=== PATIENT | female | born 2000 | race Caucasian/White ===

== ENCOUNTER 2024-11-30 16:07 | Outpatient (CLI) | payer BC, SELFPAY ==
--- OUTSIDE RECORDS SUMMARY | 2024-10-09 11:40 | XMS_ITS | Encounter Summary ---
Author Organization [place] [address] Care Team Providers Care Textile Dyer Name Role Phone Siri Valle ADMINISTRATIVE PROFESSIONAL Primary Care Provider [phone] Reason for Visit * Reason Comments Routine Visit Encounter Details Date Type Department Care Team (Late st Contact Info) Description 10/09/2024 11:40 AM EDT ROUTINE FOLLOW UP OB VISIT SEP Women's [facility] NPTF[facility] [address] [place] [address] Yelena Nielson DO [address] [place] [address] Encounter for supervision of other normal in second trimester (Primary Dx) Social History Tobacco Use Types Packs/Day Years Used Date Smoking Tobacco: Never Smokeless Tobacco: Never Tobacco Cessation:Counseling Given: Not Answered Alcohol Use Standard Drinks/Week Comments Not Currently 0 (1 standard drink = 0.6 oz pur e alcohol) occ Sexually Active Control Partners Comments Yes Male None Estimated Date of Delivery Comme nts Yes 01/28/2025 Based on last me nstrual period of 04/23/2024 Sex and Gender Information Value Date Recorded Sex Assigned at Not on file Legal Sex Female 11:02 AM EDT Gender Identity Not on file Sexual Orientation Not on file documented as of this encounter Last Filed Vital Signs Vital Sign Reading Time Taken Comments Blood Pressure 122/68 10/09/2024 11:36 AM EDT Pulse - - Temperature - - Respiratory Rate - - Oxygen Saturation - - Inhaled Oxygen Concentration - - Weight 89.4 kg (197 lb) 10/09/2024 11:36 AM EDT Height - - Body Mass Index 33.81 09/11/2024 3:29 PM EDT documented in this encounter Progress Notes * Liz Shaw RMA - 10/09/2024 11:40 AM EDT 24w1d Results for orders placed or performed in visit on 10/09/24 SEP URINALYSIS POC Result Value Ref Range UA Color POC Yellow Color UA Appear POC Clear Clear UA Gluc POC Negative Negative mg/dL UA Bili POC Negative Negative UA Ketones POC Negative Negative mg/dL UA SG POC 1.020 1.001 - 1.035 no units UA Blood POC Negative Negative UA pH POC 7.5 5.0 - 8.0 pH UA Protein POC Negative Negative mg/dL UA Urobilinogen POC 0.2 0.2, 1.0 UA Nitrite POC Negative Negative UA Leuk Est POC Negative Negative Vitals: 10/09/24 1136 BP: 122/68 BP Location: Right arm Patient Position: Sitting Weight: 197 lb (89.4 kg) * Yelena Nielson DO - 10/09/2024 11:40 AM EDT 24 y.o. at 24w1d presents for return OB visit. History of Present Illness The patient is a 24-year-old female who presents for a return OB visit. No unusual c/o BP: 122/68 Weight: 197 lb (89.4 kg) Albumin: Negative Glucose: Negative Heart Rate: + Movement: Present Diagnoses and all orders for this visit: Encounter for supervision of other normal in second trimester Overview: EDC by LMP PNL wnl Genetics low risk Anatomy nl GCT ordered Tdap Consent GBS Orders: - CBC; Future - SYPHILIS SCREEN WITH REFLEX RPR QUANT; Future - PREG GLUCOSE SCREEN; Future - SEP URINALYSIS POC Return in about 4 weeks (around 11/06/2024). Assessment & Plan 1. Routine obstetric follow-up - Anticipate more pronounced movements starting at 28 weeks, with the anterior placenta potentially affecting perception of these movements. Follow-up Follow up in 4 weeks. The provider educated the patient (or legal labor relations representative) on the use of the ambient listening artificial intelligence tool, [employer] Copilot. They were informed that this AI tool processes the conversation to generate a clinical note with the expected benefit of improved accuracy while achieving an improved encounter experience for the patient and provider.?The provider explained that the medical information captured by the AI tool including, but not limited to, diagnoses and treatment plan would be protected in accordance with applicable privacy laws and that all diagnoses and treatment decisions would be made by the provider. The provider explained that the note generated will be reviewed bythe provider for accuracy to minimize potential errors.? The patient was given an opportunity to ask questions and opt out of proceeding with the use of the AI tool. After being informed of such information, the patient (or legal labor relations representative), and each individual in attendance with the patient, verbally consented to the use of the AI tool. documented in this encounter Plan of Treatment Upcoming Encounters Date Type Department Care Team (Late st Contact Info) Description 12/03/2024 3:10 PM EDT ROUTINE FOLLOW UP OB VISIT [facility] [address] [place] [phone] Sandy Morejon MD [address] [place] [address] 12/17/2024 4:40 PM EDT ROUTINE FOLLOW UP OB VISIT [facility] [address] [phone] Laila Holcomb MD [address] [place] [address] 12/31/2024 3:40 PM EDT ROUTINE FOLLOW UP OB VISIT [facility] [address] [place] [phone] Sabine Garzon DO [address] [place] [id number] 01/07/2025 4:40 PM EDT ROUTINE FOLLOW UP OB VISIT [facility] [address] [phone] Laila Holcomb MD [address] [place] [id number] 01/14/2025 4:40 PM EDT ROUTINE FOLLOW UP OB VISIT [address] [address] Yelena Nielson, DO [address] [place] [id number] 01/21/2025 4:10 PM EDT ROUTINE FOLLOW UP OB VISIT [address] [phone] Scar Turner, DO [address] [place], [place] [id number] 01/28/2025 3:00 PM EDT Clinical Support [address] [address] 01/28/2025 4:20 PM EDT ROUTINE FOLLOW UP OB VISIT [address] [phone] Sandy Morejon MD [address] [place], [place] [id number] documented as of this encounter Procedures Procedure Name Priority Date/Time Associated Diagnosis Comments SEP URINALYSIS POC Routine 10/09/2024 11 :35 AM EDT Encounter for supervision of other normal in second trimester documented in this encounter Results * PREG GLUCOSE SCREEN (10/18/2024 10:47 AM EDT) Preg Screen 121 <130 mg/dL 10/18/2024 1:06 PM EDT [facility] [employer] Blood VENOUS BLOOD / Unknown Venipuncture / Unknown 10/18/2024 10:47 AM EDT 10/18/2024 10:47 AM EDT Narrative [facility] - 10/18/2024 1:06 PM EDT Choice of screening threshold may vary from 130 mg/dL to 140 mg/dL. ACOG recommends 3 Hr diagnostic oral glucose tolerance test following positive screen. Yelena Nielson CHEMISTRY ORDERABL ES Final Result Performing Organization Address [facility] Co de Phone Number [facility] , [place] [address] * SYPHILIS SCREEN WITH REFLEX RPR QUANT (10/18/2024 10:47 AM EDT) Pathologist [facility] Trep Ab Index 0.02 <=0.99 Index Value 10/18/2024 1:06 PM EDT [facility] Comment: < 1.00 - Non-Reactive >=1.00 - Reactive NOTE: All reactive results will be reflexed to Quantitative Non-Treponemal(RPR)test. Blood VENOUS BLOOD / Unknown Venipuncture / Unknown 10/18/2024 10:47 AM EDT 10/18/2024 10:47 AM EDT Yelena Nielson DO CHEMISTRY ORDERABL ES Final Result Performing Organization Address [facility] Co de Phone Number [address] , [place] [address] * (ABNORMAL) CBC (10/18/2024 10:47 AM EDT) WBC 11.1(H) 3.7 - 10.3 x10(3)/mcL 10/18/2024 11:43 AM EDT [facility] [facility] RBC 3.82(L) 3.90 - 5.20 x10(6)/mcL 10/18/2024 11:43 AM EDT [facility] Hgb 11.4 11.2 - 15.7 g/dL 10/18/2024 11:43 AM EDT [facility] Hct 34.7 34.0 - 45.0 % 10/18/2024 11:43 AM EDT [facility] MCV 90.8 80.0 - 100.0 fL 10/18/2024 11:43 AM EDT [facility] MCH 29.8 26.0 - 34.0 pg 10/18/2024 11:43 AM EDT [facility] MCHC 32.9 30.7 - 35.5 g/dL 10/18/2024 11:43 AM EDT [facility] RDW 13.2 <=14.9 % 10/18/2024 11:43 AM EDT [facility] Platelet 259 155 - 369 x10(3)/mcL 10/18/2024 11:43 AM EDT [facility] MPV 12.3 8.8 - 12.5 fL 10/18/2024 11:43 AM EDT [facility] Blood VENOUS BLOOD / Unknown Venipuncture / Unknown 10/18/2024 10:47 AM EDT 10/18/2024 10:47 AM EDT us Yelena Nielson DO HEMATOLOGY ORDERAB LES Final Result [facility] [address] [facility] , [place] [address] * [facility] URINALYSIS POC (10/09/2024 11:35 AM EDT) UA Color POC Yellow Color 10/09/2024 11:37 AM EDT [facility] UA Appear POC Clear Clear 10/09/2024 11:37 AM EDT [facility] UA Gluc POC Negative Negative mg/dL 10/09/2024 11:37 AM EDT [facility] UA Bili POC Negative Negative 10/09/2024 11:37 AM EDT [facility] UA Ketones POC Negative Negative mg/dL 10/09/2024 11:37 AM EDT [facility] UA SG POC 1.020 1.001 - 1.035 no units 10/09/2024 11:37 AM EDT [facility] UA Blood POC Negative Negative 10/09/2024 11:37 AM EDT [facility] UA pH POC 7.5 5.0 - 8.0 pH 10/09/2024 11:37 AM EDT [facility] UA Protein POC Negative Negative mg/dL 10/09/2024 11:37 AM EDT [facility] UA Urobilinogen POC 0.2 0.2, 1.0 10/09/2024 11:37 AM EDT [facility] UA Nitrite POC Negative Negative 10/09/2024 11:37 AM EDT [facility] UA Leuk Est POC Negative Negative 11:37 AM EDT [facility] Urine STRUCTURE OF URINARY TRACT PROPER / Unknown 10/09/2024 11:35 AM EDT 10/09/2024 11:37 AM EDT us Yelena Nielson DO POINT OF CARE TEST ORDERABLES Final Result [facility] [address] [place] [address] documented in this encounter Visit Diagnoses Diagnosis Encounter for supervision of other normal in second trimester- Primary documented in this encounter Care Teams Textile Dyer Relationship Specialty Start Date End Date Siri Valle NP [address] [place] [address] PCP - General Nurse Practitioner-Family 11/10/22 documented as of this encounter
--- OUTSIDE RECORDS SUMMARY | 2024-10-18 09:40 | XMS_ITS | Encounter Summary ---
Author Organization [place] [address] Care Team Providers Care Account Clerk Name Role Phone Siri Valle BOARD LINER OPERATOR Primary Care Provider [phone] Encounter Details Date Type Department Care Team (Latest Contact Info) Description 10/18/2024 9:40 AM EDT - 10/18/2024 11:59 PM EDT Hospital Encounter [facility] [place] [facility] Encounter for supervision of other normal in second trimester Discharge Disposition: Home or Self Care Social History Tobacco Use Types Packs/Day Years Used Date Smoking Tobacco: Never Smokeless Tobacco: Never Alcohol Use Standard Drinks/Week Comments Not Currently [...] on file documented as of this encounter Medications at Time of Discharge Azelaic Acid 15 % Top GelIndications:Ac ne vulgaris Apply a thin layer topically to the face BID. 50 g 1 05/24/2024 Doxylamine Succinate (UNISOM, DOXYLAMINE,) 25 mg Oral TabletIndications :nausea gravidarum Take 25 mg by mouth daily. Indications: nausea and vomiting of ketoconazole (NIZORAL) 2 % Top ShampooIndication s:Seborrheic dermatitis Apply topically to scalp, lather, and leave on for 5 minutes, then rinse. Use three times weekly for flares. 120 mL 2 05/24/2024 metFORMIN (GLUCOPHAGE XR) 500 mg Oral ER 24 hr tabletIndications :Encounter for supervision of other normal in first trimester,PCOS (polycystic ovarian syndrome) Take 1 Tablet by mouth 2 times daily. 180 Tablet 07/06/2024 vit no.124/iron/folic ( VITAMIN ORAL) Take 1 Tablet by mouth daily. documented as of this encounter Discharge Disposition Disposition Code Departure Means Destination Home or Self Care documented in this encounter Plan of Treatment Upcoming Encounters Date Type Department Care Team (Late st Contact Info) Description 12/03/2024 3:10 PM EDT ROUTINE FOLLOW UP OB VISIT [facility] [address] [phone] Sandy Morejon MD [address] [place] [address] 12/17/2024 4:40 PM EDT ROUTINE FOLLOW UP OB VISIT [address] [phone] Laila Holcomb MD [address] [place] [address] 12/31/2024 3:40 PM EDT ROUTINE FOLLOW UP OB VISIT [address] [phone] Sabine Garzon DO [address] [place] [address] 01/07/2025 4:40 PM EDT ROUTINE FOLLOW UP OB VISIT [address] [phone] Laila Holcomb MD [address] [place] [address] 01/14/2025 4:40 PM EDT ROUTINE FOLLOW UP OB VISIT [address] [phone] Yelena Nielson, DO [address] [place] [id number] 01/21/2025 4:10 PM EDT ROUTINE FOLLOW UP OB VISIT [address] [phone] Scar Turner, DO [address] [place] [id number] 01/28/2025 3:00 PM EDT Clinical Support [address] [address] 01/28/2025 4:20 PM EDT ROUTINE FOLLOW UP OB VISIT [address] [phone] Sandy Morejon MD [address] [place] [id number] documented as of this encounter Procedures Procedure Name Priority Date/Time Associated Diagnosis Comments SYPHILIS SCREEN WITH REFLEX RPR QUANT Routine 10/18/2024 10:47 AM EDT Encounter for supervision of other normal in second trimester PREG GLUCOSE SCREEN Routine 10/18/2024 1 0:47 AM EDT Encounter for supervision of other normal in second trimester CBC Routine 10/18/2024 10:47 AM EDT Encounter for supervision of other normal in second trimester documented in this encounter Results * PREG GLUCOSE SCREEN (10/18/2024 10:47 AM EDT) Preg Screen 121 <130 mg/dL 10/18/2024 1:06 PM EDT [employer] Blood VENOUS BLOOD / Unknown Venipuncture / Unknown 10/18/2024 10:47 AM EDT 10/18/2024 10:47 AM EDT Narrative [facility] - 10/18/2024 1:06 PM EDT Choice of screening threshold may vary from 130 mg/dL to 140 mg/dL. ACOG recommends 3 Hr diagnostic oral glucose tolerance test following positive screen. Yelena Nielson CHEMISTRY ORDERABL ES Final Result Performing Organization Address [facility] Co de Phone Number [facility] [employer] , [place] [address] * SYPHILIS SCREEN WITH REFLEX RPR QUANT (10/18/2024 10:47 AM EDT) Pathologist [facility] Trep Ab Index 0.02 <=0.99 Index Value 10/18/2024 1:06 PM EDT [facility] Comment: < 1.00 - Non-Reactive >=1.00 - Reactive NOTE: All reactive results will be reflexed to Quantitative Non-Treponemal(RPR)test. Blood VENOUS BLOOD / Unknown Venipuncture / Unknown 10/18/2024 10:47 AM EDT 10/18/2024 10:47 AM EDT Yelena Nielson DO CHEMISTRY ORDERABL ES Final Result Performing Organization Address [facility] Co de Phone Number [address] , [place] [address] * (ABNORMAL) CBC (10/18/2024 10:47 AM EDT) WBC 11.1(H) 3.7 - 10.3 x10(3)/mcL 10/18/2024 11:43 AM EDT [facility] RBC 3.82(L) 3.90 - 5.20 x10(6)/mcL 10/18/2024 11:43 AM EDT [facility] [employer], [facility] Hgb 11.4 11.2 - 15.7 g/dL 10/18/2024 [...] Final Result [facility] [address] [facility] , [place] [address] documented in this encounter Visit Diagnoses Diagnosis Encounter for supervision of other normal in second trimester documented in this encounter Care Teams Account Clerk Relationship Specialty Start Date End Date Siri Valle NP [address] [place] [address] PCP - General Nurse Practitioner-Family 11/10/22 documented as of this encounter
--- OUTSIDE RECORDS SUMMARY | 2024-11-05 14:50 | XMS_ITS | Encounter Summary ---
Author Organization [place] [address] Care Team Providers Care Commercial Kitchen Service Technician Name Role Phone Siri Valle ABSTRACT WRITER Primary Care Provider [phone] Reason for Visit * Reason Comments Routine Visit Encounter Details Date Type Department Care Team (Late st Contact Info) Description 11/05/2024 2:50 PM EDT ROUTINE FOLLOW UP OB VISIT [facility] [address] [place] [phone] Sabine Garzon, DO [address] [facility] [place] [address] Encounter for supervision of other normal in third trimester (Primary Dx) Social History Tobacco Use [...] Sign Reading Time Taken Comments Blood Pressure 124/68 11/05/2024 2:59 PM EDT Pulse - - Temperature - - Respiratory Rate - - Oxygen Saturation - - Inhaled Oxygen Concentration - - Weight 93.4 kg (206 lb) 11/05/2024 2:59 PM EDT Height 162.6 cm (5' 4 ) 11/05/2024 2:59 PM EDT Body Mass Index 35.36 11/05/2024 2:59 PM EDT documented in this encounter Progress Notes * Sabine Garzon DO - 11/05/2024 2:50 PM EDT 24 y.o. at 28w0d presents for return OB visit. Has had c/o intermittent pain to the center of her belly at times after work that feels like a bruise but then feels better after. Discussed will continue to monitor, can try Tylenol prn. Denies LOF,Ctx or VB O pos Tdap today A labor consent document was provided for her review, which includes comprehensive information about potential labor scenarios. She is encouraged to read through the document, note any questions, andbring them to the next visit for discussion as she will be required to sign this document before care can be provided during her inpatient stay. RTO 2 week(s). BP: 124/68 Weight: 206 lb (93.4 kg) Albumin: (!) Trace Glucose: Negative Fundal Height (cm): 28 cm Heart Rate: + Movement: Present Diagnoses and all orders for this visit: Encounter for supervision of other normal in third trimester Overview: EDC by LMP PNL wnl Genetics low risk Anatomy nl GCT ordered Tdap completed Consent given GBS Orders: - SEP URINALYSIS POC - TDAP VACCINE =>7YO IM Sabine Garzon DO * Ann Garza, [facility] - 11/05/2024 2:50 PM EDT 28w0d Results for orders placed or performed in visit on 11/05/24 SEP URINALYSIS POC Result Value Ref Range UA Color POC Yellow Color UA Appear POC Clear Clear UA Gluc POC Negative Negative mg/dL UA Bili POC Negative Negative UA Ketones POC Trace (A) Negative mg/dL UA SG POC 1.025 1.001 - 1.035 no units UA Blood POC Negative Negative UA pH POC 7.0 5.0 - 8.0 pH UA Protein POC Trace (A) Negative mg/dL UA Urobilinogen POC 0.2 0.2, 1.0 UA Nitrite POC Negative Negative UA Leuk Est POC Negative Negative Vitals: 11/05/24 1459 BP: 124/68 BP Location: Left arm Patient Position: Sitting Weight: 206 lb (93.4 kg) Height: 5' 4 (1.626 m) documented in this encounter Plan of Treatment Upcoming Encounters Date Type Department Care Team (Late st Contact Info) Description 12/03/2024 3:10 PM EDT ROUTINE FOLLOW UP OB VISIT [facility] [address] [phone] Sandy Morejon MD [address] [place] [address] 12/17/2024 4:40 PM EDT ROUTINE FOLLOW UP OB VISIT [facility] [address] [address] Laila Holcomb MD [address] [place] [address] 12/31/2024 3:40 PM EDT ROUTINE FOLLOW UP OB VISIT [facility] [address] [address] Sabine Garzon DO [address] [place] [address] 01/07/2025 4:40 PM EDT ROUTINE FOLLOW UP OB VISIT [facility] [address] [address] Laila Holcomb MD [address] [place] [address] 01/14/2025 4:40 PM EDT ROUTINE FOLLOW UP OB VISIT [address] [phone] Yelena Nielson, DO [address] [place] [id number] 01/21/2025 4:10 PM EDT ROUTINE FOLLOW UP OB VISIT [address] [phone] Scar Turner, DO [address] [place] [id number] 01/28/2025 3:00 PM EDT Clinical Support [address] [address] 01/28/2025 4:20 PM EDT ROUTINE FOLLOW UP OB VISIT [address] [phone] Sandy Morejon MD [address] [place] [id number] documented as of this encounter Procedures Procedure Name Priority Date/Time Associated Diagnosis Comments [facility] URINALYSIS POC Routine 11/05/2024 2: 53 PM EDT Encounter for supervision of other normal in third trimester documented in this encounter Results * (ABNORMAL) [facility] URINALYSIS POC (11/05/2024 2:53 PM EDT) UA Color POC Yellow Color 11/05/2024 3:04 PM EDT [facility] UA Appear POC Clear Clear 11/05/2024 3:04 PM EDT [facility] UA Gluc POC Negative Negative mg/dL 11/05/2024 3:04 PM EDT [facility] UA Bili POC Negative Negative 11/05/2024 3:04 PM EDT [facility] UA Ketones POC Trace(A) Negative mg/dL 11/05/2024 3:04 PM EDT [facility] UA SG POC 1.025 1.001 - 1.035 no units 11/05/2024 3:04 PM EDT [facility] UA Blood POC Negative Negative 11/05/2024 3:04 PM EDT [facility] UA pH POC 7.0 5.0 - 8.0 pH 11/05/2024 3:04 PM EDT [facility] UA Protein POC Trace(A) Negative mg/dL 11/05/2024 3:04 PM EDT [facility] UA Urobilinogen POC 0.2 0.2, 1.0 11/05/2024 3:04 PM EDT [facility] UA Nitrite POC Negative Negative 11/05/2024 3:04 PM EDT [facility] UA Leuk Est POC Negative Negative 3:04 PM EDT [facility] Urine STRUCTURE OF URINARY TRACT PROPER / Unknown 11/05/2024 2:53 PM EDT 11/05/2024 3:04 PM EDT Sabine Garzon DO POINT OF CARE TEST SCHUYLER ALFREDO Final Result [facility] [address] [place] [address] documented in this encounter Visit Diagnoses Diagnosis Encounter for supervision of other normal in third trimester- Primary documented in this encounter Orders Immunization/Injection Count Last Ordered Date First Ordered Date TDAP VACCINE =>7YO IM 1 11/05/2024 documented in this encounter Care Teams Commercial Kitchen Service Technician Relationship Specialty Start Date End Date Siri Valle NP [address] [place] [address] PCP - General Nurse Practitioner-Family 11/10/22 documented as of this encounter
--- OUTSIDE RECORDS SUMMARY | 2024-11-15 21:03 | XMS_ITS | Encounter Summary ---
Author Organization [place] [address] Care Team Providers Care Technical Support Professional Name Role Phone Siri Valle MOTOR SETTER Primary Care Provider [phone] Reason for Visit * Reason Comments Decreased Movement Encounter Details Date Type Department Care Team (Late st Contact Info) Description 11/15/2024 9:03 PM EDT - 11/15/2024 10:25 PM EDT Hospital Encounter EDG [facility] [address] [place] [address] Sandy Morejon MD [address] [place] [address] Discharge Disposition: Discharged to home/self-care with planned acute care hospital inpatient readmission Social History Tobacco Use Types Packs/Day Years [...] Sign Reading Time Taken Comments Blood Pressure 109/72 11/15/2024 9:18 PM EDT Pulse 83 11/15/2024 9:18 PM EDT Temperature 36.6 C (97.9 F) 11/15/2024 9:18 PM EDT Respiratory Rate 18 11/15/2024 9:18 PM EDT Oxygen Saturation - - Inhaled Oxygen Concentration - - Weight 93 kg (205 lb) 11/15/2024 9:18 PM EDT Height 162.6 cm (5' 4 ) 11/15/2024 9:18 PM EDT Body Mass Index 35.19 11/15/2024 9:18 PM EDT documented in this encounter Functional Status * Cognitive and Functional Status Question Answer Date of Assessment Author Is the person deaf or does he/she have serious difficulty hearing? No 11/15/2024 10:14 PM EDT Marilee Salcedo RN Is the person blind or does he/she have serious difficulty seeing even when wearing glasses? No 11/15/2024 10:14 PM EDT Marilee Salcedo RN Does this person have seriou s difficulty walking or climbing stairs? No 11/15/2024 10:14 PM EDT Marilee Salcedo RN Does this person have difficulty dressing or bathing? No 11/15/2024 10:14 PM EDT Marilee Salcedo RN * Alcohol Screening Score Answer Date of Assessment Author 0 11/15/2024 9:15 PM EDT Marilee Salcedo RN * Drug Screening Score Answer Date of Assessment Author 0 11/15/2024 9:15 PM EDT Marilee Salcedo RN * Question Answer Date of Assessment Author How often do you have a drin k containing alcohol? 0 11/15/2024 9:15 PM EDT Marilee Salcedo RN How many drinks containing alcohol do you have on a typical day when you are drinking? 0 11/15/2024 9:15 PM EDT Marilee Salcedo RN How often do you have six or more drinks on one occasion? 0 11/15/2024 9:15 PM MIGUELITOT Marilee Salcedo RN AUDIT-C to Determine Rows 4-10 0 11/15/2024 9:15 PM EDT Marilee Salcedo RN * Is the person deaf or does he/she have serious difficulty hearing? Answer Date of Assessment Author No 11/15/2024 10:14 PM EDT Marilee Salcedo RN * Is the person blind or does he/she have serious difficulty seeing even when wearing glasses? Answer Date of Assessment Author No 11/15/2024 10:14 PM Marilee Miller RN * Does this person have serious difficulty walking or climbing stairs? Answer Date of Assessment Author No 11/15/2024 10:14 PM Marilee Miller RN * Does this person have difficulty dressing or bathing? Answer Date of Assessment Author No 11/15/2024 10:14 PM Marilee Miller RN * Because of a physical, mental or emotional condition, does this person have difficulty doing errands alone such as visiting a doctor's office or shopping? Answer Date of Assessment Author No 11/15/2024 10:14 PM Marilee Miller RN * Suicide Severity Rating Answer Date of Assessment Author No Risk 11/15/2024 9:16 PM Marilee Miller RN * [place] Suicide Severity Rating Scale (Q shift for moderate and high) Question Answer Date of Assessment Author 1. In the past month, have you wished you were or wished you could go to sleep and not wake up? 0 11/15/2024 9:16 PM Marilee Miller RN 2. In the past month, have you actually had any thoughts of killing yourself? (If no, skip to question 6) 0 11/15/2024 9:16 PM Marilee Miller RN 6. Have you ever done anything, started to do anything, or prepared to do anything to end your life? 0 11/15/2024 9:16 PM Dominic Miller RN documented as of this encounter Mental Status * Cognitive and Functional Status Question Answer Entry Date Author Because of a physical, menta l or emotional condition, does this person have difficulty doing errands alone such as visiting a doctor's office or shopping? No 11/15/2024 10:14 PM Marilee Miller RN Because of a physical, menta l or emotional condition, does this person have serious difficulty concentrating, remembering or making decisions? No 11/15/2024 10:14 PM EDT Marilee Salcedo RN * Because of a physical, mental or emotional condition, does this person have serious difficulty concentrating, remembering or making decisions? Answer Entry Date Author No 11/15/2024 10:14 PM EDT Marilee Salcedo RN documented in this encounter Discharge Instructions * Discharge Instructions* Marilee Salcedo RN - 11/15/2024 10:15 PM EDT [facility] Movement Record (Kick Count) In order to monitor your infant's well being, you have been asked to keep a record of the baby's movements. Consistent movement is one of the most important indicators of health. The instructions for this area are as follows: Sit or lie down on your left side for 30 minutes three times a day, morning, afternoon and evening. Count and write down as you go the number of movements felt in each time period. After the evening count, add up the numbers of all three times and write it in the total box. If the baby does not move in the first 30 minutes, the baby may be sleeping so continue the exam for another 30 minutes. You might want to try drinking some cool juice or gently rub the abdomen to stimulate the baby. You could also eat ice, celery or an apple to help. Bring the Kick Count Sheet with you if you come to the hospital and when you come for your visits. Call immediately if: The movement does not add up to 6 in one hour as seen with The total for the day is less than half of the total of the day before as seen with * For example: Morning Afternoon Evening Total Day 1 25 30 23 78 Day 2 4 12 8 30* If you have any questions or problems, please call your Physician???s office for further instructions. [facility] Movement Record DATE MORNING AFTERNOON EVENING TOTAL [facility] Discharge Instructions Ibeth Ocampo [id number] [place] [address] Activity Restrictions: As tolerated Diet: Regular Call MD for any of the following or any other concerns Signs of Labor: More than 6 contractions/hour Decreased baby movement. Kick counts Water breaks or leaking of fluid Persistent headache Spotting or bleeding Double or blurred vision Elevated temperature >100.5 or chills Severe heartburn or indigestion Persistent nausea or vomiting Swelling of face or hands Pain, burning or difficulty urinating Constant abdominal pain Comments/Instructions: MEDICATIONS: Drug Dose Times to Take Reason for Taking *Contact your doctor before resuming any medications from home not listed above, questions about food/drug interactions, and diet or activity instructions. Please continue your current pain management regimen. IF PAIN INTENSIFIES OR PAIN IS UNRELIEVED WITH MEDICATIONS ORDERED, CALL YOUR PHYSICIAN. Remember to contact your physician for a follow-up appointment as instructed. Follow-up with Dr. Morejon at your next appointment Discharge instructions were given to patient with patient's/family full understanding. Patient Signature Date: Nurse Signature Date: 11/15/24 documented in this encounter Medications at Time of Discharge [...] Discharge Disposition Disposition Code Departure Means Destination Comment s Discharged to home/self-care with planned acute care hospital inpatient readmission Home documented in this encounter Progress Notes * Marilee Salcedo RN - 11/15/2024 10:25 PM EDT After completion of the Medical Screening Evaluation, it has been determined that a medical emergency does not exist and the patient is not in active labor, and therefore the patient may be discharged home. Pt. Presented to triage with c/o decreased movement. Reactive FHT. Movement heard on monitor.Pt. States she was told she has an anterior placenta. Orders for d/c noted. D/c instructions provided including kick counts. Pt. Verbalized understanding. Pt. D/c home ambulatory. * Marilee Salcedo RN - 11/15/2024 10:23 PM EDT 11/15/24 2218 NST NST Performed? Yes $ NST charge Yes Nonstress Test Uterine Findings Uterine Irritability No Contractions Not present Nonstress Test Fetus A Variability Moderate Decelerations None Accelerations Yes Acoustic Stimulator No Baseline 135 BPM Interpretation Fetus A Nonstress Test Interpretation Reactive Cosigned by Rayne Blackwell DO at 11/30/2024 12:48 AM EDT documented in this encounter Plan of Treatment Upcoming Encounters Date Type Department Care Team (Late st Contact Info) Description 12/03/2024 3:10 PM EDT ROUTINE FOLLOW UP [place] [facility] [address] [place] [address] Sandy Morejon MD [address] [place] [address] 12/17/2024 4:40 PM EDT ROUTINE FOLLOW UP OB VISIT SEP [facility] [address] [place] [address] Laila Holcomb MD [address] [place] [address] 12/31/2024 3:40 PM EDT ROUTINE FOLLOW UP OB [place] [address] Sabine Garzon, DO [address] [place] [address] 01/07/2025 4:40 PM EDT ROUTINE FOLLOW UP OB VISIT [facility]'s [address] [phone] Laila Holcomb MD [address] [place] [address] 01/14/2025 4:40 PM EDT ROUTINE FOLLOW UP OB VISIT [facility]'s [address] [address] Yelena Nielson, DO [address] [place] [address] 01/21/2025 4:10 PM EDT ROUTINE FOLLOW UP OB VISIT SEP [facility]'s [address] [address] Scar Turner, DO [address] [place] [address] 01/28/2025 3:00 PM EDT Clinical Support SEP [facility] [address] [address] 01/28/2025 4:20 PM EDT ROUTINE FOLLOW UP OB VISIT [facility]'s [address] [address] Sandy Morejon MD [address] [place] [id number] documented as of this encounter Procedures Procedure Name Priority Date/Time Associated Diagnosis Comments URINALYSIS POC Routine 11/15/2024 9:47 PM EDT documented in this encounter Results * URINALYSIS POC (11/15/2024 9:47 PM EDT) UA Color POC Yellow Color 11/15/2024 9:49 PM EDT [facility] UA Appear POC Clear Clear 11/15/2024 9:49 PM EDT [facility] UA Blood POC Negative Negative 11/15/2024 9:49 PM EDT [facility] UA pH POC 7.0 5.0 - 8.0 pH 11/15/2024 9:49 PM EDT [facility] UA Urobilinogen POC 0.2 0.2, 1.0 11/15/2024 9:49 PM EDT [facility] UA Nitrite POC Negative Negative 11/15/2024 9:49 PM EDT [facility] UA Leuk Est POC Negative Negative 9:49 PM EDT [facility] UA SG POC 1.010 1.001 - 1.035 no units 11/15/2024 9:49 PM EDT [facility] UA Gluc POC Negative Negative mg/dL 11/15/2024 9:49 PM EDT [facility] UA Protein POC Negative Negative mg/dL 11/15/2024 9:49 PM EDT [facility] UA Ketones POC Negative Negative mg/dL 11/15/2024 9:49 PM EDT [facility] Urine STRUCTURE OF URINARY TRACT PROPER / Unknown 11/15/2024 9:47 PM EDT 11/15/2024 9:49 PM EDT us Sandy Morejon MD POINT OF CARE TEST ORDERABL ES Final Result [facility] [address] [place] [address] documented in this encounter Visit Diagnoses Not on filedocumented in this encounter Orders Discharge Count Last Ordered Date First Orde red Date DISCHARGE PATIENT 1 11/15/2024 documented in this encounter Care Teams Technical Support Professional Relationship Specialty Start Date End Date Siri Valle NP [address] [place] [address] PCP - General Nurse Practitioner-Family 11/10/22 documented as of this encounter
--- OUTSIDE RECORDS SUMMARY | 2024-11-22 09:00 | XMS_ITS | Encounter Summary ---
Author Organization [place] [address] Care Team Providers Care Bander Operator Name Role Phone Siri Valle COOKY PACKER Primary Care Provider [phone] Reason for Visit * Reason Comments Routine Visit Encounter Details Date Type Department Care Team (Late st Contact Info) Description 11/22/2024 9:00 AM EDT ROUTINE FOLLOW UP OB VISIT SEP [facility] [address] [place] [address] Scar Turner, DO [address] [place] [address] Encounter for supervision of other normal in [...] Sign Reading Time Taken Comments Blood Pressure 120/80 11/22/2024 8:56 AM EDT Pulse - - Temperature - - Respiratory Rate - - Oxygen Saturation - - Inhaled Oxygen Concentration - - Weight 96.7 kg (213 lb 3.2 oz) 11/22/2024 8:56 A M EDT Height 162.6 cm (5' 4 ) 11/22/2024 8:56 AM EDT Body Mass Index 36.6 11/22/2024 8:56 AM EDT documented in this encounter Functional Status * Is the person deaf or does he/she have serious difficulty hearing? Answer Date of Assessment Author No 11/15/2024 10:14 PM EDT Marilee Salcedo RN * Is the person blind or does he/she have serious difficulty seeing even when wearing glasses? Answer Date of Assessment Author No 11/15/2024 10:14 PM EDT Marilee Salcedo RN * Does this person have serious difficulty walking or climbing stairs? Answer Date of Assessment Author No 11/15/2024 10:14 PM EDT Marilee Salcedo RN * Does this person have difficulty dressing or bathing? Answer Date of Assessment Author No 11/15/2024 10:14 PM EDT Marilee Salcedo RN * Because of a physical, mental or emotional condition, does this person have difficulty doing errands alone such as visiting a doctor's office or shopping? Answer Date of Assessment Author No 11/15/2024 10:14 PM EDT Marilee Salcedo RN documented as of this encounter Mental Status * Because of a physical, mental or emotional condition, does this person have serious difficulty concentrating, remembering or making decisions? Answer Entry Date Author No 11/15/2024 10:14 PM MIGUELITOT Marilee Salcedo RN documented in this encounter Progress Notes * Scar Turner DO - 11/22/2024 9:00 AM EDT 24 y.o. at 30w3d presents for return OB visit. No unusual complaints O Pos S/p Tdap Signed labor consent RTO 2 week(s). BP: 120/80 Weight: 213 lb 3.2 oz (96.7 kg) Albumin: Negative Glucose: (!) 250 Fundal Height (cm): 30 cm Heart Rate: + Movement: Present Diagnoses and all orders for this visit: Encounter for supervision of other normal in third trimester Overview: EDC by LMP PNL wnl Genetics low risk Anatomy nl GCT ordered Tdap completed Consent signed GBS Orders: - SEP URINALYSIS POC Scar Turner DO * Lea Christianson MA - 11/22/2024 9:00 AM EDT 30w3d Results for orders placed or performed in visit on 11/22/24 SEP URINALYSIS POC Result Value Ref Range UA Color POC Yellow Color UA Appear POC Clear Clear UA Gluc POC 250 (A) Negative mg/dL UA Bili POC Negative Negative UA Ketones POC Trace (A) Negative mg/dL UA SG POC 1.025 1.001 - 1.035 no units UA Blood POC Negative Negative UA pH POC 7.0 5.0 - 8.0 pH UA Protein POC Negative Negative mg/dL UA Urobilinogen POC 0.2 0.2, 1.0 UA Nitrite POC Negative Negative UA Leuk Est POC Trace (A) Negative Vitals: 11/22/24 0856 BP: 120/80 BP Location: Left arm Patient Position: Sitting Weight: 213 lb 3.2 oz (96.7 kg) Height: 5' 4 (1.626 m) documented in this encounter Plan of Treatment Upcoming Encounters Date Type Department Care Team (Late st Contact Info) Description 12/03/2024 3:10 PM EDT ROUTINE FOLLOW UP OB VISIT [address] [address] Sandy Morejon MD [address] [place], [place] [id number] 12/17/2024 4:40 PM EDT [facility] [address] [place] [address] Laila Holcomb MD [address] [place] [address] 12/31/2024 3:40 PM EDT ROUTINE FOLLOW UP OB VISIT [facility] [address] [address] Sabine Garzon, DO [address] [place] [id number] 01/07/2025 4:40 PM EDT ROUTINE FOLLOW UP OB VISIT [facility] [address] [address] Laila Holcomb MD [address] [place] [address] 01/14/2025 4:40 PM EDT ROUTINE FOLLOW UP OB VISIT [facility] [address] [address] Yelena Nielson, DO [address] [place], [place] [id number] 01/21/2025 4:10 PM EDT ROUTINE FOLLOW UP OB VISIT [facility] [address] [address] Scar Turner, DO [address] [place] [address] 01/28/2025 3:00 PM EDT Clinical Support [facility] [address] [address] 01/28/2025 4:20 PM EDT ROUTINE FOLLOW UP OB VISIT [facility] [address] [address] Sandy Morejon MD [address] [place] [id number] documented as of this encounter Procedures Procedure Name Priority Date/Time Associated Diagnosis Comments [facility] URINALYSIS POC Routine 11/22/2024 8: 54 AM EDT Encounter for supervision of other normal in third trimester documented in this encounter Results * (ABNORMAL) [facility] URINALYSIS POC (11/22/2024 8:54 AM EDT) UA Color POC Yellow Color 11/22/2024 8:57 AM EDT [facility] UA Appear POC Clear Clear 11/22/2024 8:57 AM EDT [facility] UA Gluc POC 250(A) Negative mg/dL 11/22/2024 8:57 AM EDT [facility] UA Bili POC Negative Negative 11/22/2024 8:57 AM EDT [facility] Ketones POC Trace(A) Negative mg/dL 11/22/2024 8:57 AM EDT [facility] UA SG POC 1.025 1.001 - 1.035 no units 11/22/2024 8:57 AM EDT [facility] UA Blood POC Negative Negative 11/22/2024 8:57 AM EDT [facility] UA pH POC 7.0 5.0 - 8.0 pH 11/22/2024 8:57 AM EDT [facility] UA Protein POC Negative Negative mg/dL 11/22/2024 8:57 AM EDT [facility] UA Urobilinogen POC 0.2 0.2, 1.0 11/22/2024 8:57 AM EDT [facility] UA Nitrite POC Negative Negative 11/22/2024 8:57 AM EDT [facility] UA Leuk Est POC Trace(A) Negative 8:57 AM EDT [facility] Urine STRUCTURE OF URINARY TRACT PROPER / Unknown 11/22/2024 8:54 AM EDT 11/22/2024 8:57 AM EDT us Scar Turner DO POINT OF CARE TEST O RDERABLES Final Result [facility] [address] [place] [address] documented in this encounter Visit Diagnoses Diagnosis Encounter for supervision of other normal in third trimester- Primary documented in this encounter Care Teams Bander Operator Relationship Specialty Start Date End Date Siri Valle NP [address] [place] [address] PCP - General Nurse Practitioner-Family 11/10/22 documented as of this encounter
--- OUTSIDE RECORDS SUMMARY | 2024-11-30 16:17 | XMS_ITS | Encounter Summary ---
Author Organization [place] [address] Care Team Providers Care Bridges Supervisor Name Role Phone Siri Valle EXPLOSIVE ORDNANCE SPECIALIST Primary Care Provider [phone] Encounter Details Date Type Department Care Team (Late st Contact Info) Description 10/23/2024 Results Follow-Up [facility] [address] [place] [phone] Yelena Nielson DO [address] [place] [address] CBC, SYPHILIS SCREEN WITH REFLEX RPR QUANT, PREG GLUCOSE SCREEN Social History Tobacco Use Types Packs/Day Years [...] on file documented as of this encounter Plan of Treatment Upcoming Encounters Date Type Department Care Team (Late st Contact Info) Description 12/03/2024 3:10 PM EDT ROUTINE FOLLOW UP OB VISIT [facility] [address] [place] [address] Sandy Morejon MD [address] [place] [address] 12/17/2024 4:40 PM EDT ROUTINE FOLLOW UP OB VISIT [facility] [address] [address] Laila Holcomb MD [address] [place] [id number] 12/31/2024 3:40 PM EDT ROUTINE FOLLOW UP OB VISIT SE[facility] [address] [address] Sabine Garzon, DO [address] [place] [facility] 01/07/2025 4:40 PM EDT ROUTINE FOLLOW UP OB VISIT [facility] [address] [address] Laila Holcomb MD [address] [place], [place] [id number] 01/14/2025 4:40 PM EDT ROUTINE FOLLOW UP OB VISIT [facility] [address] [address] Yelena Nielson DO [address] [place] [address] 01/21/2025 4:10 PM EDT ROUTINE FOLLOW UP OB VISIT [facility] [address] [address] Scar Turner, DO [address] [place] [address] 01/28/2025 3:00 PM EDT Clinical Support [facility] Women[facility] [address] [address] 01/28/2025 4:20 PM EDT ROUTINE FOLLOW UP [facility] VISIT [facility] [address] [place] [address] Sandy Morejon MD [address] [place], [place] [id number] documented as of this encounter Visit Diagnoses Not on filedocumented in this encounter Care Teams Bridges Supervisor Relationship Specialty Start Date End Date Siri Valle NP [address] [place] [address] PCP - General Nurse Practitioner-Family 11/10/22 documented as of this encounter
--- OUTSIDE RECORDS SUMMARY | 2024-11-30 16:17 | XMS_ITS | Encounter Summary ---
Author [place] [address] Care Team Providers Care Preparer Making Department Name Role Phone Siri Valle CORRUGATED BOX MACHINE OPERATOR Primary Care Provider [phone] Reason for Visit * Reason Onset Date Comments Paperwork/forms 10/09/2024 Encounter Details Date Type Department Care Team (Late st Contact Info) Description 10/09/2024 Telephone [facility] [address] [place] [address] Yelena Nielson DO [address] [place] [address] Paperwork/forms Social History Tobacco Use Types Packs/Day Years [...] on file documented as of this encounter Miscellaneous Notes * Telephone Encounter - Liz Shaw RMA - 10/17/2024 10:37 AM EDT FMLA paperwork completed and faxed. Patient informed through [employer]. * Telephone Encounter - Ailyn Schumacher, Clerical Staff - 10/09/2024 11:52 AM EDT FMLA/STD forms received in [facility] office. $30 fee paid. Cover sheet and medical record release completed. Forms in bin in [facility]. documented in this encounter Plan of Treatment Upcoming Encounters Date Type Department Care Team (Late st Contact Info) Description 12/03/2024 3:10 PM EDT ROUTINE FOLLOW UP OB VISIT [facility] [address] [address] Sandy Morejon MD [address] [place] [id number] 12/17/2024 4:40 PM EDT ROUTINE FOLLOW UP OB VISIT [facility] [address] [address] Laila Holcomb MD [address] [place] [address] 12/31/2024 3:40 PM EDT ROUTINE FOLLOW UP OB VISIT [facility] [address] [address] Sabine Garzon DO [address] [place] [address] 01/07/2025 4:40 PM EDT ROUTINE FOLLOW UP OB VISIT [facility] [address] [address] Laila Holcomb MD [address] [place] [address] 01/14/2025 4:40 PM EDT ROUTINE FOLLOW UP OB VISIT [facility] [address] [address] Yelena Nielson, DO [address] [place] [id number] 01/21/2025 4:10 PM EDT ROUTINE FOLLOW UP OB VISIT [facility] [address] [address] Scar Turner, DO [address] [place] [address] 01/28/2025 3:00 PM EDT Clinical Support [facility] [address] [address] 01/28/2025 4:20 PM EDT ROUTINE FOLLOW UP OB VISIT [facility] [address] [address] Sandy Morejon MD [address] [place] [facility] documented as of this encounter Visit Diagnoses Not on filedocumented in this encounter Care Teams Preparer Making Department Relationship Specialty Start Date End Date Siri Valle NP [address] [place] [address] PCP - General Nurse Practitioner-Family 11/10/22 documented as of this encounter
--- OUTSIDE RECORDS SUMMARY | 2024-11-30 16:17 | XMS_ITS | Data Portability ---
Author Organization [facility] Address [address] [place] [address] Assessment No assessment recorded. Plan of Treatment Reminders Order Date Submit Date Provider Last Modified By Organization Details Last Modified Time Details Appointments None recorded. [facility] 2023 [facility]24 [email or web address], [address], [place], [place], [address], 4 08:06:27 amylase + lipase, serum 2023 024 AUDELIA [facility], [address], [place], [place], [address], 4 08:12:57 Hepatitis C IgG Ab, qual, serum [address] [facility], [address], [place], [place], [address], 4 15:04:23 hepatitis panel (A+B+C), acute, serum 2023 024 AUDELIA [facility], [address], [place], [place], [address], 4 08:12:57 Hepatitis C IgG Ab, qual, serum 2023 024 AUDELIA [facility], [address], [place], [place], [address], 4 08:12:58 HBsAg (hepatitis B surface Ag), EIA, serum [address] [facility], [address], [place], [place], [address], 4 15:04:24 rapid strep group A, throat 2023 024 [facility], [address] [place] [address], [phone], 4 10:12:25 rapid flu (A+B) 2023 024 [facility], [address] [place] [address], [phone], 4 10:12:27 Referral None recorded. Procedures None recorded. Surgeries None recorded. Imaging US, liver 2023 024 [facility], [address], [place], [address], 4 11:32:58 US, transvagina l 2023 024 [email or web address] [facility], [address] [place] [address] , [place], [address], 4 07:34:09 US, breast, unilateral - tender density upper inner aspect right breast 2022 024 [email or web address] [facility] Breast/Dexa, [facility] , [place], [address], 4 13:56:49 Medication Orders Zithromax Z-Oliverio 250 mg tablet 2023 024 [email or web address] 9 [facility] [id number], [address] [place] [address] , [place], [address], 4 09:48:07 Patient TargetsNo targets recorded. Patient Instructions Encounter Date Encounter Id Patient Instructions Last Modified By Organization Details Last Modified Time 05/04/2023 [id number] See HPI Schedule imaging Vit E Limit Caffeine Limit bras w/underwire-recom mend sports bra Continue SBE Not available 05/05/2023 09:18:21 Reason for Referral None Reported. Results Created Date Observation Date Name Description Value Unit Range Abnormal Flag Note LastModifiedBy Organization Detail LastModifiedTime 07/15/19 24 07/15/2023 rapid flu (A+B) Flu negati ve Not Available [address], [address], 07/15/2023 09:47:46 07/15/19 24 07/15/2023 rapid flu (A+B) Type Both A & B Not Available [address], [address], 07/15/2023 09:47:46 07/15/19 24 07/15/2023 rapid strep group A, throa t Strep negati ve Not Available [address], [address], 07/15/2023 09:34:12 07/15/19 24 07/15/2023 rapid strep group A, throa t Culture No Not Available [address], [address], 07/15/2023 09:34:12 11/11/19 24 11/12/2023 ACUTE HEPAT ITIS hep A Ab, IgM Negati ve negati ve Not Available [facility] ([facility]) [address] [facility], [place], [address], 11/12/2023 08:12:57 11/11/19 24 11/12/2023 ACUTE HEPAT ITIS HBsAg screen Negati ve negati ve Not Available [facility] ([facility]) [address] [facility], [place], [address], 11/12/2023 08:12:57 11/11/19 24 11/12/2023 ACUTE HEPAT ITIS hep B core Ab, IgM Negati ve negati ve Not Available [facility] ([facility]) [address] [facility], [place], [address], 11/12/2023 08:12:57 11/11/19 24 11/12/2023 ACUTE HEPAT ITIS HCV Ab Non Reacti ve non reacti ve Not Available [facility] ([facility]) [address] [facility], [place], [address], 11/12/2023 08:12:57 11/11/1911/12/2023 ACUTE HEPAT ITIS interpretati on: Commen t Not infec shadia with HCV unles s early or acute infec tion is suspe cted (whic h may be delay ed in an immun ocomp romis ed indiv idual ), or other evide nce exist s to indic ate HCV infec tion. Not Available [facility] ([facility]) [address] [facility], [place], [address], 11/12/2023 08:12:57 11/11/1911/12/2023 JOVANNY+L IPASE amylase 58 U/L 31-110 Not Available [facility] ([facility]) [address] [facility], [place], [address], 11/12/2023 08:12:57 11/11/19 24 11/12/2023 JOVANNY+L IPASE lipase 18 U/L 14-72 Not Available [facility] ([facility]) [address] [facility], [place], [address], 11/12/2023 08:12:57 11/11/19 24 11/12/2023 HCV ANTIB ELINA hep C virus Ab COMMEN T Dupli david proce dure order ed. HCV antib elina alone does not diffe renti ate betwe en previ ously resol mary infec tion and activ e infec tion. Equiv ocal and React gloria HCV antib elina resul ts shoul d be follo wed up with an HCV RNA test to suppo rt the diagn osis of activ e HCV infec tion. Not Available [facility] ([facility]) [address] [facility], [place], [address], 11/12/2023 08:12:58 12/01/19 24 12/02/2023 HEPAT IC FUNCT ION PANEL (7) protein, total 7.1 g/dL 6.0-8. 5 Not Available [facility] ([facility]) [address] [place], [address], 12/02/2023 08:12:29 12/01/19 24 12/02/2023 HEPAT IC FUNCT ION PANEL (7) albumin 4.5 g/dL 4.0-5. 0 Not Available [facility] ([facility]) [address] [place], [address], 12/02/2023 08:12:29 12/01/19 24 12/02/2023 HEPAT IC FUNCT ION PANEL (7) bilirubin, total 0.3 mg/dL 0.0-1. 2 Not Available [facility] ([facility]) [address] [place], [address], 12/02/2023 08:12:29 12/01/19 24 12/02/2023 HEPAT IC FUNCT ION PANEL (7) bilirubin, direct 0.10 mg/dL 0.00-0 .40 Not Available [facility] ([facility]) [address] [place], [address], 12/02/2023 08:12:29 12/01/19 24 12/02/2023 HEPAT IC FUNCT ION PANEL (7) alkaline phosphatase 102 IU/L 44-121 Not Available [facility] [address] [place], [address], 12/02/2023 08:12:29 12/01/19 24 12/02/2023 HEPAT IC FUNCT ION PANEL (7) AST (SGOT) 26 IU/L 0-40 Not Available [facility] ([facility]) [address] [facility], [place], [address], 12/02/2023 08:12:29 12/01/19 24 12/02/2023 HEPAT IC FUNCT ION PANEL (7) ALT (SGPT) 42 IU/L 0-32 above high normal Not Available [facility] ([facility]) [address] [facility], [place], [address], 12/02/2023 08:12:29 07/04/19 24 07/05/2023 US, trans vagin al No observ ation record ed. [email or web address] [facility] [address] [place] [address] , [place], [address], 07/05/2023 14:56:28 07/04/19 US, trans vagin al No observ ation record ed. [email or web address] Not Available 2023 17:08:40 07/12/19 24 07/04/2023 US, trans vagin al No observ ation record ed. [email or web address] [facility] [address] [place] [address] , [place], [address], 07/12/2023 13:26:39 08/11/19 US, trans vagin al No observ ation record ed. AUDELIA [facility] [address] [place] [address] , [place], [address], 08/13/2023 13:05:43 08/12/19 24 08/11/2023 US, trans vagin al No observ ation record ed. BARCODE [facility] [address] [place] [address] , [place], [address], 08/12/2023 16:15:27 11/28/19 24 11/28/2023 US, liver No observ ation record ed. [email or web address] [facility] [address] [facility] [facility], [place], [address], 11/29/2023 13:55:44 Result Notes None recorded. Problems Name Problem SNOMED Code Status Onset Date Resolution Date Notes Provider Name and Address Organization Details Recorded Time Normal body mass index 70801221 Completed 202005/04/2023 Ann Smithcker, [employer] [address], [place], [address] , [place] - [facility] 3 13:37:34 COVID-19 928130505 Completed 202111/09/2021 Faith Jain null, [place] - [facility] 2 10:33:11 Acne 53448799 Active 2022 Kellie Farfan null, [place] - [facility] 4 09:48:22 Body mass index 25-29 - overweight 516940129 Active 2022 Ann Smithcker, [employer] [address], [place], [address] , [place] - [facility] 3 16:06:22 Left lower quadrant pain 652386806 Active 2023 Kellie Farfan null, [place] - [facility] 4 09:48:38 Hemorrhagi c cyst of ovary 285503968 Active 2023 left Kellie Farfan tulio, [place] - [facility] 4 09:48:34 Problem Notes None recorded. Procedures Surgical History Date Name Laterality Status Provider Name and Address Organization Details Recorded Time 4 Date of Last Pap Smear completed Laurita Philip [place] - [facility] 12/29/2023 08:50:02 repair of liver laceration completed Faith Jain [place] - [facility] 09/24/2019 16:23:38 Imaging Results None recorded. Procedure Notes None recorded. Medical Equipment None Reported. Allergies Allergen ID Allergen Name Allergen Category Reaction Reaction Severity Criticality Documentation Date Start Date Code Code System Note Provider Name and Address Organization Details Recorded Time 829188 Substance with sulfonami de structure and antibacte rial mechanism of action (substanc e) medicatio n rash moderate high 09/24/2019 67274 7988 SNOMED mothe r told her she was aller gic- she is unsur e of edith barr Jaquelin Warren null, [place] - [facility] 08:28:54 Medications Name Sig Start Date Stop Date Status Note LastModified by Organization Details LastModified Time medroxypr ogesteron e 10 mg tablet active Not Available Not Available Not Available fluconazo le 100 mg tablet 06/24 completed Not Available Not Available Not Available doxycycli ne hyclate 100 mg capsule 04/13 completed Not Available Not Available Not Available ketoconaz ole 2 % shampoo APPLY TO THE AFFECTED AREA(S), LATHER, LEAVE IN PLACE FOR 5 MINUTES, AND THEN RINSE OFF WITH WATER BY TOPICAL ROUTE ONCE DAILY 2 times a week x 8 wks then only prn 11/10 completed Not Available Not Available Not Available azithromy harish 250 mg tablet TAKE 2 TABLETS (500 MG) BY ORAL ROUTE ONCE DAILY FOR 1 DAY THEN 1 TABLET (250 MG) BY ORAL ROUTE ONCE DAILY FOR 4 DAYS 08/10 completed Not Available Not Available Not Available fluconazo le 150 mg tablet 1 tablet with repeat in 3-5 days 04/13 completed Not Available Not Available Not Available ondansetr on HCl 4 mg tablet prn 08/10 completed Not Available Not Available Not Available prednison e 20 mg tablet TAKE ONE (1) TABLET EVERY DAY BY ORAL ROUTE IN THE MORNING FOR FIVE (5) DAYS. 04/13 completed Not Available Not Available Not Available ciproflox acin 250 mg tablet 09/23 completed Not Available Not Available Not Available acyclovir 400 mg tablet Take 1 tablet 3 times a day by oral route for 7 days. active Not Available Not Available No t Available clindamyc in 1 % topical gel APPLY A THIN LAYER TO THE AFFECTED AREA(S) BY TOPICAL ROUTE 2 TIMES PER DAY 07/02 completed Not Available Not Available Not Available benzonata te 100 mg capsule 06/24 completed Not Available Not Available Not Available clotrimaz ole-betam ethasone 1 %-0.05 % topical cream APPLY TO THE AFFECTED AND SURROUND ING AREAS OF SKIN BY TOPICAL ROUTE 2 TIMES PER DAY IN THE MORNING AND EVENING FOR 2 WEEKS 04/13 completed Not Available Not Available Not Available acyclovir 200 mg capsule 07/15 completed Not Available Not Available Not Available methylpre dnisolone 4 mg tablets in a dose pack 02/23 completed Not Available Not Available Not Available fluticaso ne propionat e 50 mcg/actua tion nasal spray,tracy pension [place] 1 spray every day by intranas al route for 14 days. 04/13 completed Not Available Not Available Not Available metformin ER 500 mg tablet,ex tended release 24 hr Take 1 mg twice a day by oral route for 90 days. active Not Available Not Available No t Available amoxicill in 875 mg-potass ium clavulana te 125 mg tablet 10/06 completed Not Available Not Available Not Available clindamyc in phosphate 1 % topical solution Apply by topical route for 30 days. 11/11 completed Not Available Not Available Not Available nitrofura ntoin monohydra te/macroc rystals 100 mg capsule 09/23 completed Not Available Not Available Not Available Prometriu m 150mg @ hs 07/15 completed started by [facility] [place] Not Available Not Available Not Available drospiren one 3 mg-ethiny l estradiol 0.02 mg tablet Take 1 tablet every day by oral route. 05/04 completed Not Available Not Available Not Available Tri-Lo-Ma rzia 0.18 mg/0.215 mg/0.25 mg-0.025 mg tablet TAKE 1 TABLET BY MOUTH EVERY DAY 07/02 completed Not Available Not Available Not Available Acne Medicatio n 2.5 % topical gel APPLY A THIN LAYER TO THE AFFECTED AREA(S) BY TOPICAL ROUTE ONCE DAILY 11/11 completed Not Available Not Available Not Available Vitals Date Recorded Body height Body mass index (BMI) Body weight Body temperature Heart rate Oxygen saturation Oxygen saturation in Arterial blood by Pulse oximetry Respiratory rate Systolic And Diastolic Provider Name and Address Organization Details Last Updated DateTime 4 162.56 cm 27.3 kg/m2 47868.1 9 g 98.6 [degF] 114 /min 95 % 95 % 18 /min 120/72 mm[Hg] Laurita Stears [place] - [facility] 4 09:40:10 Date Recorded Body height Body mass index (BMI) Body weight Heart rate Oxygen saturation Oxygen saturation in Arterial blood by Pulse oximetry Respiratory rate Systolic And Diastolic Provider Name and Address Organization Details Last Updated DateTime 4 162.56 cm 30 kg/m2 50283.6 6 g 78 /min 97 % 97 % 18 /min 110/65 mm[Hg] Jaquelin Warren [place] - [facility] 4 10:50:13 Date Recorded Body height Provider Name an d Address Organization Details Last Updated DateTime 12/01/2023 162.56 cm Jaquelin Warren [place] - [facility] 0 12/01/2023 14:23:30 Date Recorded Body height Body mass index (BMI) Body weight Systolic And Diastolic Provider Name and Address Organization Details Last Updated DateTime 05/04/2023 162.56 cm 28.4 kg/m2 64390.18 g 116/70 mm[Hg] Faith Jain [place] - [facility] 05/04/2023 13:35:22 Social History Question Answer Notes LastModified by Organizat ion Details LastModified Time Tobacco Smoking Status Never Smoker Faith Cristobal antunez, [place] - [facility] 09/24/2019 16:20:59 Do You Have An Advance Directive? No Information not available 07/15/2023 Are You Blind Or Do You Have Difficulty Seeing? No Information not available 07/15/2023 Is Blood Transfusion Acceptable In An Emergency? No [email or web address] Information not available 08/11/2023 What Is Your Level Of Caffeine Consumption? Heavy [email or web address] Information not available 07/02/2022 How Much Tobacco Do You Chew? None [email or web address] Information not available 09/24/2019 In The 14 Days Before Symptom Onset, Have You Had Close Contact With A Laboratory-confir med COVID-19 While That Case Was Ill? No [email or web address] Information not available 08/11/2023 In The 14 Days Before Symptom Onset, Have You Had Close Contact With A Person Who Is Under Investigation For COVID-19 While That Person Was Ill? No [email or web address] Information not available 08/11/2023 Have You Been To An Area Known To Be High Risk For COVID-19? No [email or web address] Information not available 08/11/2023 Are You Deaf Or Do You Have Serious Difficulty Hearing? No Information not available 07/15/2023 What Type Of Diet Are You Following? REGULAR [email or web address] Information not available 09/24/2019 Have You Processed Blood Or Body Fluids From An Ebola Virus Disease Patient Without Appropriate PPE? No [email or web address] Information not available 08/11/2023 Do You Reside In Or Have You Traveled To An Area Where Ebola Virus Transmission Is Active? No [email or web address] Information not available 08/11/2023 What Is The Highest Grade Or Level Of School You Have Completed Or The Highest Degree You Have Received? [id number] Information not available 06/24/2021 Have There Been Any Changes To Your Family Or Social Situation? No Information no t available 07/15/2023 What Is The Fluoride Status Of Your Home? Fluoridated Information not available 08/11/2023 Have You Recently Or Are You Planning To Travel To An Area With Zika Virus? No Information not available 08/11/2023 Live Alone Or With Others? With Others [email or web address] Information not available 09/24/2019 Do You Have A Medical Power Of Sfdc Architect? No Information not available 07/15/2023 What Was The Date Of Your Most Recent Tobacco Screening? 11/11/2023 [email or web address] Information not available 11/11/2023 How Many Children Do You Have? 0 [email or web address] Information not available 08/11/2023 Do You Use Protection During Sex? Always Information not available 08/11/2023 Do You Use Protection Against STDs? Always [email or web address] Information not available 08/11/2023 What Is Your Relationship Status? [email or web address] Information not available 11/11/2022 Are You Sexually Active? Yes [email or web address] Information not available 09/24/2019 Do You Have Smoke And Carbon Monoxide Detectors In Your Home? Yes Information not available 07/15/2023 Are You Passively Exposed To Smoke? No [email or web address] Information no t available 08/11/2023 How Much Tobacco Do You Smoke? No [email or web address] Information not available 09/24/2019 Has Tobacco Cessation Counseling Been Provided? No [email or web address] Information not available 08/11/2023 How Many Years Have You Smoked Tobacco? 0 [email or web address] Information not available 09/24/2019 Do You Have Difficulty Walking Or Climbing Stairs? No Information not available 07/15/2023 What Contraceptive Method Was Reported At Start Of This Visit? Male Condom [email or web address] Information not available 05/04/2023 What Contraceptive Method Was Reported At End Of This Visit? Male Condom [email or web address] Information not available 05/04/2023 Do You Want To Talk About Contraception Or Prevention During Your Visit Today? No - I Am Already Using Contraception [email or web address] Information not available 11/11/2022 Do You Have Any Future Plans To Get ? No, I Don't Want To Become [email or web address] Information not available 07/02/2022 Sex: Female Functional Status Question Answer Note LastModified by [employer] ion Details LastModified Time How many times per week do you consume alcohol? 1-2 times per week Information not available 07/15/2023 Do you or have you ever used smokeless tobacco? Never used smokeless tobacco Information not available 09/24/2019 Are you currently employed? Yes Information not available 06/24/2021 Do you have transportation difficulties? No Information not available 07/15/2023 Are you able to care for yourself? Yes [email or web address] Information n ot available 07/02/2022 Do you have difficulty dressing or bathing? No Information not available 07/15/2023 Do you or have you ever used e-cigarettes or vape? Never used electronic cigarettes [email or web address] Information not available 09/24/2019 What is your exercise level? Occasional [email or web address] Information not available 09/24/2019 Do you use any illicit or recreational drugs? No Information not available 07/15/2023 Do you or have you ever used any other forms of tobacco or nicotine? No [email or web address] Information not available 11/11/2022 What is your level of alcohol consumption? Occasional Information not available 09/24/2019 What is your status? Not [email or web address] Information no t available 07/02/2022 Are you able to walk? YESWOREST [email or web address] Information not available 09/24/2019 Do you have difficulty doing errands alone? 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 [id number] Information not available 07/15/2023 Do you have difficulty concentrating, remembering or making decisions? No Information no t available 07/15/2023 Family History Relationship Description Onset Age of this Age Resolved Age Notes LastModified by Organization Details LastModified Time Maternal Grandfather Malignant tumor of esophagus [email or web address] Not available 2019 16:20:39 Maternal Aunt Malignant tumor of colon [email or web address] Not available 2020 08:53:42 Medical History Condition Response Pancreatitis N Coronary Artery Disease N Other N Gout N Atrial Fibrillation N congenital heart disease N Blood Diseases N Kidney Stones N Hyperthyroidism N Rheumatoid arthritis N Blood Transfusion N Erectile Dysfunction N amputation N Colonoscopy N Skin Lesions N COPD N Depression N Pneumonia N Incontinence N Murmur N Edema N Alzheimer's Disease N Migraine Headaches N Tobacco Abuse N Anxiety Disorder N Muscle, Joint, or Bone Problems N Hemorrhoids N Obesity N Vision or Eye Problems N Restless Leg Syndrome N Arthritis N Infertility N Polyps N Carpal Tunnel N Mental Disorder N Acid Reflux (GERD) N Cancer N Stroke N Varicosities N Tendonitis N Crohn's Disease N Hypercholesterolemia N Skin Cancer N Fibromyalgia N Headaches N Anal Fissure N Irritable Bowel Syndrome N Kidney Disease N Heart Problems N Ear or Hearing Problems N Hospitalizations N Gallstones N Kidney or Bladder Problems N Goiter N Acne N Skin Problems N Eating Disorder N Bailey's Esophagus N Hypertriglyceridemia N MRSA exposure N Constipation N Embolism N Vitamin B12 Deficiency N Deviated Septum N Tuberculosis N AIDS/HIV N Myocardial Infarction N Asthma N Mitral Valve Disorders N Vertigo N Hepatitis N Thyroid Cancer N Neuropathy N Pulmonary Embolism N History of DVT N Herniated Disc N Chronic Ear Infections N Chicken Pox N Autism Spectrum Disorder (ASD) N Von Willebrands Disease N Thrombophilias N Breast Cancer N Hernia N Plantar Fasciitis N Hospital Admission Other Than N Lung Disease N Hypothyroidism N Defects or Inherited Disease N Developmental or Behavioral Disorders N Breast Problem N Difficulty Swallowing N Ovarian Cyst N Anesthesia Complications N Testosterone Deficiency N Meniere's disease N Head Injury/Concussion N Interstitial Cystitis N Congenital Anomalies N Hypoglycemia N Blood clot N Vitamin D Deficiency N Cellulitis N Endometriosis N Fracture N Bladder or Kidney Problems N Colorectal Cancer N Liver Disease N Panic Disorder N Schizophrenia N Concussion N Spina Bifida N Allergies/Hayfever N Osteoarthritis N Parkinson's Disease N Disc Protrusion N STI N Esophagitis N Angina N Thyroid Problems N GI Problems N ADD/ADHD N Anemia N Multiple Sclerosis N Abnormal PAP N Lumbago N Mental Illness N Psychiatric Illness N Diabetes N Ovarian Cancer N Bedwetting N Degenerative Disc Disease N Seizures/Epilepsy N Congestive Heart Failure (CHF) N Hyperlipidemia N Syncope N Insomnia N Eczema N Abuse/Domestic Violence N Attention Deficient Disorder N Diverticulitis N Dementia N Ulcerative colitis N Cerebrovascular Disease N Depression N Guillain-Flushing N Sleep Apnea N Aneurysm N Bronchitis N Heart Disease N Suicidal Ideation N Pre-Eclampsia N Hypertension N Osteoporosis N Gynecological History Statement/Question Response Abnormal Pap N Flow Moderate Date of LMP 11/11/2023 STIs/STDs N Duration of Flow (days) 5 Current Control Method Condoms Age at Menarche 13 Last Annual Exam/Provider [id number] Frequency of Cycle (Q days) 26 Sexually Active? Y Date of Last Cervical Culture 11/11/2022 Menses Monthly Y Date of Last Pap Smear 12/21/2023 Sexual Problems? N LMP Definite Desired Control Method Condoms Obstetrics History GPAL:G 0 P 0 0 0 0 Type Value Full Term 0 Living 0 Total 0 Immunizations Vaccine Type Date Status Note Provider Nam e and Address Organization Details Recorded Time Influenza, split virus, quadrivalent, preservative 9 completed Not Available [facility] 07/15/2023 09:29:36 Influenza, split virus, quadrivalent, preservative 0 completed Not Available [facility] 07/15/2023 09:29:36 COVID-19, mRNA, LNP-S, PF, 100 mcg/0.5mL dose or 50 mcg/0.25mL dose 1 completed Jaquelin antunez, [place] - [facility] 04/13/2022 08:28:10 COVID-19, mRNA, LNP-S, PF, 100 mcg/0.5mL dose or 50 mcg/0.25mL dose 1 completed Jaquelin Warren null, [place] - [facility] 04/13/2022 08:28:10 varicella 8 completed Jaquelin Warren null, [place] - [facility] 04/13/2022 08:28:10 Hep B, adolescent or pediatric 4 completed Jaquelin Warren null, [place] - [facility] 04/13/2022 08:28:10 Tdap 0 completed Jaquelin Warren null, [place] - [facility] 04/13/2022 08:28:10 IPV 3 completed Jaquelin Warren null, [place] - [facility] 04/13/2022 08:28:10 DTaP, unspecified formulation 3 completed Jaquelin Warren null, [facility] - [facility] 04/13/2022 08:28:10 Influenza, split virus, quadrivalent, preservative 8 completed Jaquelin Warren null, [place] - [facility] 04/13/2022 08:28:10 meningococcal MCV4, unspecified formulation 0 completed Jaquelin Warren null, [place] - [facility] 04/13/2022 08:28:10 influenza, unspecified formulation 2 completed Not Available [facility] 07/15/2023 09:29:36 Past Encounters Encounter ID Performer Location Encounter Start Date Encounter Closed Date Diagnosis/Indication Diagnosis SNOMED-CT Code Diagnosis ICD10 Code Diagnosis Note [id number] JOCELYN Paige WELLNESS ASSISTANT [address] [place] [address] [place] Martinez [address] 7 09/24/2019 15:58:53 09/24/2019 17:09:57 Routine gynecologic examination done 4031743334 9101 Z01.419 Depression screening 171 792428 Z13.89 Hypertensi on screening 178338717 Z13.6 Screening for malignant neoplasm of cervix 063483716 Z12.4 Diet education 69294471 Z71.3 Encourage healthy eating Counseling 787440959 Z71 .82 Encouraged regular exercise [facility] 564877944 Z30.9 Break-thro ugh bleeding 81241569 N92.1 Body mass index 20-24 - normal 947384042 Z68.21 [id number] JOCELYN Paige WELLNESS ASSISTANT [address] [place] [address] [place] Martinez [address] 7 10/06/2020 08:38:21 10/06/2020 09:19:13 Routine gynecologic examination done 4035159336 9101 Z01.419 Depression screening 171 108531 Z13.89 Hypertensi on screening 168949296 Z13.6 Diet education 71532870 Z71.3 Encourage healthy eating Counseling 184203421 Z71 .82 Encouraged continued regular exercise [facility] 606874262 Z30.9 Examinatio n of blood pressure 740114251 Z01.30 Venereal d isease screening 987229272 Z11.3 Normal bod y mass index 07001477 Z68.22 [id number] Kellen Mcnulty [address] [place] [address] 06/24/2021 09:25:03 06/24/2021 10:33:35 Suspected COVID-19 160918638 Z20.822 COVID-19 576301019 U07.1 [id number] Ann Lackey CAR SALTER [place] WELLNESS ASSISTANT [address] [place] [address] [place] [address] 11/09/2021 10:30:54 11/09/2021 11:07:27 Routine gynecologic examination done 7816842678 9101 Z01.419 Depression screening 171 840966 Z13.89 Hypertensi on screening 715576877 Z13.6 Diet education 16413924 Z71.3 Encourage healthy eating Counseling 005464553 Z71 .82 Encouraged regular exercise 30-40min/d ay 4-5 days/wk [facility] 858224993 Z30.9 Examinatio n of blood pressure 518383492 Z01.30 Venereal d isease screening 096811404 Z11.3 Normal bod y mass index 58088343 Z68.24 [id number] Jaquelin Casas [place] [address] [place] [address] 12/23/2021 10:32:54 12/23/2021 11:42:49 Viral screening 159361825 Z11.52 COVID-19 086011361 U07.1 [id number] Khushi Johnson [place] [address] 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 [address] 07/02/2022 14:18:41 07/02/2022 15:07:18 Acne 89942194 L70.9 [facility] 734456345 Z30.9 [id number] Ann Lackey APRN [place] WELLNESS ASSISTANT [address] [place] [address] [place] [address] 11/11/2022 12:45:18 11/11/2022 13:45:06 Routine gynecologic examination done 1672158710 9101 Z01.419 Depression screening 171 339226 Z13.31 PHQ-9 completed today. Diet education 32292785 Z71.3 Encourage healthy eating Counseling 494810673 Z71 .82 Exercise counselarchana gramajo Patient encouraged to exercise 30 minutes 5 days a week. Examinatio n of blood pressure 512589346 Z01.30 Hypertensi on screening 227552624 Z13.6 Screening for malignant neoplasm of cervix 037662911 Z12.4 Contracept ion care management 483898110 Z30.9 Body mass index 25-29 - overweight 800993247 Z68.26 Overweight 305063502 E66 .3 [id number] Ann Lackey APRN [place] WELLNESS ASSISTANT [address] [place] [address] [place] [address] 05/04/2023 13:16:19 05/04/2023 14:31:23 Breast lump 74114805 N63.12 [id number] Ann Lackey APRN [place] WELLNESS ASSISTANT [address] [place] [address] [place] [address] 07/04/2023 15:17:06 07/04/2023 16:52:38 Left lower quadrant pain 377972162 R10.32 Hemorrhagi c cyst of ovary 360135417 N83.983 [id number] Siri Valle [place] [address] 1 07/15/2023 09:26:58 07/15/2023 10:15:18 Streptococcal sore throat 61231027 J02.0 contact precaution s [id number] Siri Valle [place] [address] 11/11/2023 10:38:33 11/11/2023 11:11:28 Liver function tests outside reference range 314967653 R94.5 [facility] [id number] [facility] [place] [address] 12/01/2023 14:10:37 12/01/2023 14:24:17 Liver enzymes level above reference range 966236656 R74.8 Health Concerns Section Related Observation LastModified by Organization Detai ls LastModified Time None Recorded Concern Status LastModified by Organization Details LastModified Time None Recorded Advance Directives Directive N: Payers Insurance Date Sequence Insurance Name Policy Number Policy Munoz Covered Member ID Munoz Member ID Guarantor Name 05/18/2023 1 [place] [id number] William Garciakana [id number] Ibeth Ocampo 12/13/2023 1 [place] [id number] Ibeth Ocampo [id number] Ibeth Ocmapo 08/10/2023 2 [employer] (PPO) [id number] Ibeth Valle [id number] Ibeth Ocampo Notes Date Note Type Note Provider Name and Address Organization Details Recorded Time 05/04/2023 text/html Ibeth presents today c/o lump in right breast. Ibeth presents with concerns regarding tenderness upper inner aspect right breast. FBC was suspected @ [facility].She recently stopped bcps mid-pack. Discussed.She had labs with a functional medicine specialist in [place] and was started on progesterone nightly. Ann Lackey, CAR SALTER [address], [place], [address], [place] [facility] 05/05/2023 09:18:41 07/04/2023 text/html Ultrasound only for LLQ pain Ann Lackey, CAR SALTER [address], [place], [address], [place] [facility] 07/04/2023 17:12:37 07/15/2023 text/html 22 year old fema fritz who presents to the office today with concerns ofsore throat, headache yesterday morning, felt hot last night and pain with swallowing Sammarj Valle, CAR SALTER [address], [place], [address], [place] [facility] 07/15/2023 10:12:53 11/11/2023 text/html 23 yr old female presents for lab work related to elevated liver enzymes. Siri Valle APRN [address], [place], [address], [place] [facility] 11/11/2023 11:03:43 12/01/2023 text/html 23 yr old female presents for lab work. Jaquelin Warren [facility], [place] - [facility] 12/01/2023 14:26:19 OBGyn Episode No OBEpisode recorded.
--- OUTSIDE RECORDS SUMMARY | 2024-11-30 16:18 | XMS_ITS | Encounter Summary ---
Author Organization [facility] [place] [address] Care Team Providers Care Audit Manager Name Role Phone Siri Valle WATER TREATMENT PLANT REPAIRER Primary Care Provider [phone] Encounter Details Date Type Department Care Team (Latest Contact Info) Description 11/15/2024 Travel Social History Tobacco Use Types Packs/Day Years [...] on file documented as of this encounter Functional Status * Cognitive and Functional Status Question Answer Date of Assessment Author Is the person deaf or does he/she have serious difficulty hearing? No 11/15/2024 10:14 PM EDT Marilee Salcedo RN Is the person blind or does he/she have serious difficulty seeing even when wearing glasses? No 11/15/2024 10:14 PM MIGUELITOT Marilee Salcedo RN Does this person have seriou s difficulty walking or climbing stairs? No 11/15/2024 10:14 PM MIGUELITOT Marilee Salcedo RN Does this person have difficulty dressing or bathing? No 11/15/2024 10:14 PM MIGUELITOT Marilee Salcedo RN * Alcohol Screening Score Answer Date of Assessment Author 0 11/15/2024 9:15 PM Marilee Miller RN * Drug Screening Score Answer Date of Assessment Author 0 11/15/2024 9:15 PM EDT Marilee Salcedo RN * Question Answer Date of Assessment Author How often do you have a drin k containing alcohol? 0 11/15/2024 9:15 PM EDT Marilee Salcedo RN How many drinks containing alcohol do you have on a typical day when you are drinking? 0 11/15/2024 9:15 PM Marilee Miller RN How often do you have six or more drinks on one occasion? 0 11/15/2024 9:15 PM Marilee Miller RN AUDIT-C to Determine Rows 4-10 0 11/15/2024 9:15 PM Marilee Miller RN * Suicide Severity Rating Answer Date of Assessment Author No Risk 11/15/2024 9:16 PM Marilee Miller RN * [place] Suicide Severity Rating Scale (Q shift for [...] Marilee Salcedo RN documented in this encounter Plan of Treatment Upcoming Encounters Date Type Department Care Team (Late st Contact Info) Description 12/03/2024 3:10 PM EDT ROUTINE FOLLOW UP OB VISIT [facility] [address] [address] Sandy Morejon MD [address] [place] [address] 12/17/2024 4:40 PM EDT ROUTINE FOLLOW UP OB VISIT [facility] [address] [address] Laila Holcomb MD [address] [place] [address] 12/31/2024 3:40 PM EDT ROUTINE FOLLOW UP OB VISIT [facility] [address] [address] Sabine Garzon, DO [address] [place] [address] 01/07/2025 4:40 PM EDT ROUTINE FOLLOW UP OB VISIT [address] [address] Laila Holcomb MD [address] [place] [id number] 01/14/2025 4:40 PM EDT ROUTINE FOLLOW UP OB VISIT [facility] [address] [address] Yelena Nielson DO [address] [place] [address] 01/21/2025 4:10 PM EDT ROUTINE FOLLOW UP [facility] [address] [address] Scar Turner DO [address] [place] [address] 01/28/2025 3:00 PM EDT Clinical Support [facility] [address] [address] 01/28/2025 4:20 PM EDT ROUTINE FOLLOW UP OB VISIT [facility] [address] [address] Sandy Morejon MD [address] [place] [id number] documented as of this encounter Visit Diagnoses Not on filedocumented in this encounter Care Teams Audit Manager Relationship Specialty Start Date End Date Siri Valle NP [address] [place] [address] PCP - General Nurse Practitioner-Family 11/10/22 documented as of this encounter
--- OUTSIDE RECORDS SUMMARY | 2024-11-30 16:18 | XMS_ITS | Encounter Summary ---
Author Organization [facility] [address] Care Team Providers Care Skilled Helper Name Role Phone Siri Valle PRODUCT SUPPORT MANAGER Primary Care Provider [phone] Reason for Visit * Reason Onset Date Comments Medication Refill 11/18/2024 Encounter Details Date Type Department Care Team (Late st Contact Info) Description 11/18/2024 Refill [facility] NPTFTT [address] [place] [address] Sabine Garzon, DO [address] [facility] [place] [address] Medication Refill Social History Tobacco Use Types Packs/Day Years [...] as of this encounter Functional Status * Is the person deaf or does he/she have serious difficulty hearing? Answer Date of Assessment Author No 11/15/2024 10:14 PM EDT Marilee Salcedo RN * Is the person blind or does he/she have serious difficulty seeing even when wearing glasses? Answer Date of Assessment Author No 11/15/2024 10:14 PM EDMarilee Callahan RN * Does this person have serious [...] Marilee Salcedo RN documented in this encounter Ordered Prescriptions Prescription Sig Dispense Quantity Refills Last Filled Start Date End Date pyridoxine, vitamin B6, (VITAMIN B-6) 25 mg Oral TabletIndications:E modesto stage of Take 1 Tablet by mouth 3 times daily as needed for Nausea. 90 Tablet 11/19/2024 documented in this encounter Plan of Treatment Upcoming Encounters Date Type Department Care Team (Late st Contact Info) Description 12/03/2024 3:10 PM EDT ROUTINE FOLLOW UP OB VISIT [address] [phone] Sandy Morejon MD [address] [place] [id number] 12/17/2024 4:40 PM EDT ROUTINE FOLLOW UP OB VISIT [address] [address] Laila Holcomb MD [address] [place] [address] 12/31/2024 3:40 PM EDT ROUTINE FOLLOW UP OB VISIT [address] [place] [address] Sabine Garzon, DO [address] [place] [id number] 01/07/2025 4:40 PM EDT ROUTINE FOLLOW UP OB VISIT [address] [address] Laila Holcomb MD [address] [place] [address] 01/14/2025 4:40 PM EDT ROUTINE FOLLOW UP OB VISIT [facility] [address] [address] Yelena Nielson [address] [place] [facility] 01/21/2025 4:10 PM EDT ROUTINE FOLLOW UP OB VISIT [address] [address] Scar Turner, DO [address] [place] [address] 01/28/2025 3:00 PM EDT Clinical Support [address] [address] 01/28/2025 4:20 PM EDT ROUTINE FOLLOW UP OB VISIT [address] [address] Sandy Morejon MD [address] [place] [facility] documented as of this encounter Visit Diagnoses Diagnosis Early stage of documented in this encounter Discontinued Medications Medication Sig Discontinue Reason Start Date End Da te pyridoxine, vitamin B6, (VITAMIN B-6) 25 mg Oral TabletIndications:Early stage of Take 1 Tablet by mouth 3 times daily as needed for Nausea. Reorder 08/15/2024 11/18/2024 documented as of this encounter Care Teams Skilled Helper Relationship Specialty Start Date End Date Siri Valle NP [address] [place] [address] PCP - General Nurse Practitioner-Family 11/10/22 documented as of this encounter
--- OUTSIDE RECORDS SUMMARY | 2024-11-30 16:18 | XMS_ITS | Encounter Summary ---
Author Organization [place] [address] Care Team Providers Care Email Designer Name Role Phone Tori Sammarj THIRD STEEL POURER Primary Care Provider [phone] Reason for Visit * Reason Onset Date Comments Problem 11/15/2024 Encounter Details Date Type Department Care Team (Late st Contact Info) Description 11/15/2024 Nurse Triage [facility] Nurse Now [facility] [place] [address] Gardenia Perea, RN Social History Tobacco Use Types Packs/Day Years [...] encounter Miscellaneous Notes * Telephone Encounter - Gardenia Perea, FORREST - 11/15/2024 7:39 PM EDT Nurse Triage Call -Chief Complaint: 29 wks last two days, hasn't been feeling baby move as much. was on day yesterday. came home and tried to lay and drink cold water. tried two separate days. not feeling her as much also has an anterior placenta. stated in one hr only felt her one time denies vaginal discharge denies bleeding, stated she was having mild cramping that doesn't last -Reported by: Patient -Vitals: No vitals obtained on this call -Disposition per protocol: go to L&D now -Follow up/Concerns: message sent to Dr Morejon via [facility] to send to triage Reason for Disposition [1] 23 or more weeks AND [2] mother thinks baby is moving less (e.g., even if kick count is normal or not performed) (Exception: Mother was distracted by other activities.) Protocols used: - Decreased or Abnormal [id number] documented in this encounter Plan of Treatment Upcoming Encounters Date Type Department Care Team (Late st Contact Info) Description 12/03/2024 3:10 PM EDT ROUTINE FOLLOW UP OB VISIT [facility] [address] [address] Sandy Morejon MD [address] [place] [address] 12/17/2024 4:40 PM EDT ROUTINE FOLLOW UP OB VISIT [address] [address] Laila Holcomb MD [address] [place] [address] 12/31/2024 3:40 PM EDT ROUTINE FOLLOW UP OB VISIT [address] [address] Sabine Garzon DO [address] [place] [id number] 01/07/2025 4:40 PM EDT ROUTINE FOLLOW UP OB VISIT [facility] [address] [address] Laila Holcomb MD [address] [place] [address] 01/14/2025 4:40 PM EDT ROUTINE FOLLOW UP [facility] [place] [address] [place] [address] [place], [place] [id number] 01/21/2025 4:10 PM EDT ROUTINE FOLLOW UP [facility]IT [facility] [place] [address] Scar Turner, DO [address] [place], [place] [id number] 01/28/2025 3:00 PM EDT Clinical Support [facility] [address] [address] 01/28/2025 4:20 PM EDT ROUTINE FOLLOW UP OB VISIT [facility] [address] [address] Sandy Morejon MD [address] [place] [address] documented as of this encounter Visit Diagnoses Not on filedocumented in this encounter Care Teams Email Designer Relationship Specialty Start Date End Date Siri Valle NP [address] [place] [address] PCP - General Nurse Practitioner-Family 11/10/22 documented as of this encounter
--- OUTSIDE RECORDS SUMMARY | 2024-11-30 16:18 | XMS_ITS | Clinical Summary ---
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 Diagnosis Comments SEP URINALYSIS POC Routine 11/22/2024 8: 54 AM EDT Encounter for supervision of other normal in third trimester URINALYSIS POC Routine 11/15/2024 9:47 PM EDT SEP URINALYSIS POC Routine 11/05/2024 2: 53 PM EDT Encounter for supervision of other normal in third trimester PREG GLUCOSE SCREEN Routine 10/18/2024 1 0:47 AM EDT Encounter for supervision of other normal in second trimester SYPHILIS SCREEN WITH REFLEX RPR QUANT Routine 10/18/2024 10:47 AM EDT Encounter for supervision of other normal in second trimester CBC Routine 10/18/2024 10:47 AM EDT Encounter for supervision of other normal in second trimester SEP URINALYSIS POC Routine 10/09/2024 11 :35 AM EDT Encounter for supervision of other normal in second trimester VA US LOWER EXTREMITY VENOUS LEFT STAT 09/14/2024 3:55 PM EDT Swelling of lower extremity during in second trimester SEP URINALYSIS POC Routine 09/11/2024 3: 18 PM EDT Encounter for supervision of other normal in second trimester PN US OB 14+WKS, LOW RISK ANATOMY OR NEW INDICATION SINGLE GEST Routine 09/11/2024 2:54 PM EDT Encounter for anatomic survey CHLAMYDIA/GC BY TMA Routine 07/17/2024 2 :51 PM EST Encounter for supervision of other normal in first trimester [employer] OPER[employer] CYTOLOGY REQUEST (PAP ONLY) Routine 12/21/2023 11:14 AM EDT Well woman exam with routine gynecological exam from Last 3 Months or Most Recently Relevant to Health Maintenance Results * (ABNORMAL) [facility] URINALYSIS POC (11/22/2024 8:54 AM EDT) Only the most recent of4 resultswithin the time period is included. UA Color POC Yellow Color 11/22/2024 8:57 AM EDT [facility] PK UA Appear POC Clear Clear 11/22/2024 8:57 AM EDT [facility] PK UA Gluc POC 250(A) Negative mg/dL 11/22/2024 8:57 AM EDT [facility] PK UA Bili POC Negative Negative 11/22/2024 8:57 AM EDT [facility] PK UA Ketones POC Trace(A) Negative mg/dL 11/22/2024 8:57 AM EDT [facility] PK UA SG POC 1.025 1.001 - 1.035 no units 11/22/2024 8:57 AM EDT [facility] PK UA Blood POC Negative Negative 11/22/2024 8:57 AM EDT [facility] PK UA pH POC 7.0 5.0 - 8.0 pH 11/22/2024 8:57 AM EDT [facility] PK UA Protein POC Negative Negative mg/dL 11/22/2024 8:57 AM EDT [facility] UA Urobilinogen POC 0.2 0.2, 1.0 11/22/2024 8:57 AM EDT [facility] PK UA Nitrite POC Negative Negative 11/22/2024 8:57 AM EDT [facility] PK UA Leuk Est POC Trace(A) Negative 8:57 AM EDT [facility] PK Urine STRUCTURE OF URINARY TRACT PROPER / Unknown 11/22/2024 8:54 AM EDT 11/22/2024 8:57 AM EDT Scar Turner DO POINT OF CARE TEST O RDERABLES Final Result [facility] [address] [id number] * URINALYSIS POC (11/15/2024 9:47 PM EDT) UA Color POC Yellow Color 11/15/2024 9:49 PM EDT [facility] UA Appear POC Clear Clear 11/15/2024 9:49 PM EDT [facility] UA Blood POC Negative Negative 11/15/2024 9:49 PM EDT [facility] UA pH POC 7.0 5.0 - 8.0 pH 11/15/2024 9:49 PM EDT [facility] UA Urobilinogen POC 0.2 0.2, 1.0 11/15/2024 9:49 PM EDT [facility] UA Nitrite POC Negative Negative 11/15/2024 9:49 PM EDT [facility] UA Leuk Est POC Negative Negative 9:49 PM EDT [facility] UA SG POC 1.010 1.001 - 1.035 no units 11/15/2024 9:49 PM EDT [facility] UA Gluc POC Negative Negative mg/dL 11/15/2024 9:49 PM EDT [facility] UA Protein POC Negative Negative mg/dL 11/15/2024 9:49 PM EDT [facility] UA Ketones POC Negative Negative mg/dL 11/15/2024 9:49 PM EDT [facility] Urine STRUCTURE OF URINARY TRACT PROPER / Unknown 11/15/2024 9:47 PM EDT 11/15/2024 9:49 PM EDT us Sandy Morejon MD POINT OF CARE TEST ORDERABL ES Final Result [facility] [address] [place] [address] * SYPHILIS SCREEN WITH REFLEX RPR QUANT (10/18/2024 10:47 AM EDT) [facility] Trep Ab Index 0.02 <=0.99 Index Value 10/18/2024 1:06 PM EDT [facility] Comment: < 1.00 - Non-Reactive >=1.00 - Reactive NOTE: All reactive results will be reflexed to Quantitative Non-Treponemal(RPR)test. Blood VENOUS BLOOD / Unknown Venipuncture / Unknown 10/18/2024 10:47 AM EDT 10/18/2024 10:47 AM EDT Yelena Nielson DO CHEMISTRY ORDERABL ES Final Result Performing Organization Address [facility] de Phone Number [facility] [address] , [place] [address] * PREG GLUCOSE SCREEN (10/18/2024 10:47 AM EDT) [facility] Preg Screen 121 <130 mg/dL 10/18/2024 1:06 PM EDT [facility] Blood VENOUS BLOOD / Unknown Venipuncture / Unknown 10/18/2024 10:47 AM EDT 10/18/2024 10:47 AM EDT Narrative [facility] - 10/18/2024 1:06 PM EDT Choice of screening threshold may vary from 130 mg/dL to 140 mg/dL. ACOG recommends 3 Hr diagnostic oral glucose tolerance test following positive screen. Yelena Nielson DO CHEMISTRY ORDERABL ES Final Result Performing Organization Address [facility] Co de Phone Number [facility] [employer] [address] [facility] , [place] [address] * (ABNORMAL) CBC (10/18/2024 10:47 AM EDT) [facility] WBC 11.1(H) 3.7 - 10.3 x10(3)/mcL 10/18/2024 11:43 AM EDT [facility] RBC 3.82(L) 3.90 - 5.20 x10(6)/mcL 10/18/2024 11:43 AM EDT [facility] Hgb 11.4 11.2 - 15.7 g/dL 10/18/2024 [...] 10/18/2024 10:47 AM EDT Yelena Nielson DO HEMATOLOGY ORDERAB LES Final Result [facility], [address] , [place] [address] * VA US LOWER EXTREMITY VENOUS LEFT (09/14/2024 3:55 PM EDT) Anatomical Region Laterality Modality Vascular, Thigh, Leg Vascular Im aging 09/14/2024 3:27 PM EDT Impressions 09/14/2024 4:16 PM EDT Conclusions * No evidence of deep vein thrombosis identified in the left lower extremity. * No evidence of superficial vein thrombosis identified in the left lower extremity. * No evidence of thrombosis is noted in the contralateral right common femoral vein. Narrative Procedure Note Sabas Serrano MD - 09/14/2024 IMPRESSION Conclusions * No evidence of deep vein thrombosis identified in the left lower extremity. * No evidence of superficial vein thrombosis identified in the leftlower extremity. * No evidence of thrombosis is noted in the contralateral right common femoral vein. us Abbott Kee Turner DO [facility] VASCULAR ORDERAB LES Final Result * PN US OB 14+WKS, LOW RISK ANATOMY OR NEW INDICATION SINGLE GEST (09/11/2024 2:54 PM EDT) Anatomical Region Laterality Modality Pelvis Other Narrative 09/11/2024 8:07 PM EDT Anatomy wnl/complete us Abbott Kee Turenr DO [facility] ORDERA BLES Final Result * CHLAMYDIA/GC BY TMA (07/17/2024 2:51 PM EST) Chlamydia trachomatis Not Detected Not Detected 2024 2:39 AM EST [facility] Neisseria gonorrhoeae Not Detected Not Detected 2024 2:39 AM EST [facility] Urine URINE SPECIMEN COLLECTION / Unknown 07/17/2024 2:51 PM EST 07/17/2024 2:51 PM EST Narrative [facility], [facility] - 2024 2:39 AM EST Testing methodology is pressure washer mediated amplification (TMA) using the Aptima Combo 2 assay from [employer]. A negative result does not completely rule out a Chlamydia trachomatis or Neisseria gonorrhoeae infection due to potential inhibitors or levels present below the limit of detection by this assay. Results are dependent on proper collection and transport of specimen. This test is indicated for medical purposes only and should not be used for legal or forensic purposes. The performance characteristics of this assay were validated by the testing laboratory. This assay is FDA cleared to test the following specimens: clinician-collected endocervical, vaginal, male urethral swab specimens, rectal swabs, and throat/pharyngeal swabs; patient collected vaginal specimens within a clinic setting; Thin Prep Specimens in PreservCyt Solution; and first-stream, unpreserved male and female urine specimens. Detailed methodology is available upon request. Scar Turner DO MICROBIOLOGY - GENER AL ORDERABLES Final Result [facility] [address] [facility] , [address] [place] [id number] * [employer]PER[employer] CYTOLOGY REQUEST (PAP ONLY) (12/21/2023 11:14 AM EDT) CASE REPORT Gynecologic Cytology Report Case: [id number] Authorizing Provider: Scar Turner, Collected: 12/21/2023 1114 DO Ordering Location: [facility] Received: 12/21/2023 1114 First Screen: Clayton Rooney CT Specimen: LIQUID-BASED PAP - CERVICAL/ENDOCERV ICAL, Cervix, Endocervical 12/23/2023 12:04 PM EDT [facility] PAP FINAL DIAGNOSIS Negative for intraepithelial lesion or malignancy 12/23/2023 12:04 PM EDT [facility] at 1204 EDT MICROSCOPIC DESCRIPTION Microscopic examination is performed and the findings corroborate the diagnosis. 12/23/2023 12:04 PM EDT [facility] PAP SMEAR ADEQUACY Satisfactory for evaluation 12/23/2023 12:04 PM EDT [facility] ENDOCERVICAL T-ZONE Transformation zone absent. 12/23/2023 12:04 PM EDT [facility] EMBEDDED IMAGES 12:04 PM EDT [facility] PAP DISCLAIMER The Pap Smear is a screening test that aids in the detection of cervical cancer and cancer precursors. Both false positive and false negative results can occur. The test should be used at regular intervals, and positive results should be confirmed before definitive therapy. Processed using the ThinPrep Coat Hanger Shaper Machine Operator Automated cytology screening device ([employer]). 12/23/2023 12:04 PM EDT [facility] Thin Prep ENDOCERVICAL STRUCTURE / Unknown 12/21/2023 11:14 AM EDT 12/21/2023 11:14 AM EDT Scar Turner DO CYTOLOGY ORDERABLES Final Result [id number] [id number] from Last 3 Months or Most Recently Relevant to Health Maintenance Insurance [facility] Care Teams Gas Usage Meter Clerk Relationship Specialty Start Date End Date Siri Valle NP [address] [place] [address] PCP - General Nurse Practitioner-Family 11/10/22
[2024-11-30 16:25] VITALS: BP 118/78; PULSE 94; RESP 16; TEMP 37; O2SAT 96; BMI 36.6
[2024-11-30 17:12] LABS: Microscopic, Urine URINE MICROSCOPIC (MICROSCOPIC)
[2024-11-30 17:14] LABS: Appearance,Urine CLEAR (Clear); Bilirubin,Urine Negative (Negative); Blood, Urine Negative (Negative); Color,Urine YELLOW (Yellow); Glucose,Urine (UA) Negative (Negative); Ketones,Urine Negative (Negative); Leukocyte Esterase,Urine Negative (Negative); Nitrate,Urine Negative (Negative); PH,Urine 6.5 (5.0-8.5); Protein,Urine Negative (Negative); Specific Gravity, Urine 1.015 (1.005-1.030); Urobilinogen,Urine 0.2 EU/dl (0.2)
[2024-11-30 17:32] LABS: Amorphous Sediment,Urine 1+ /lpf; Bacteria,Urine 2+ /lpf; Calcium Oxalate Crystals,Urine Trace /lpf; Squamous Epithelial Cell,Urine 20-50 #/hpf (0-5)
[2024-11-30 17:33] LABS: Mucus,Urine 2+ /lpf
== END 2024-11-30 17:30 | disposition home or self-care (01) ==
LOC: OBOUT 16:16 → OB 16:18
PROVIDERS: Visit Provider Obstetrics & Gynecology
DX: O36.8130 Decreased fetal movements, third trimester, not applicable or unspecified (principal); Z3A.31 31 weeks gestation of pregnancy
CPT/HCPCS: 59025; 81001; 87086; 99212; G0463